=== PATIENT | female | born 1975 | race African-American/Black ===

== ENCOUNTER 2020-08-31 22:45 | Emergency (ER) | payer BC ==
[~2020-08-31] VITALS: Ht 172.7 cm; Wt 126.1 kg
[2020-08-31 22:57] VITALS: BP 145/77
[2020-08-31 23:02] LABS: URINE BILIRUBIN NEGATIVE (Negative); URINE BLOOD NEGATIVE (Negative); URINE CLARITY CLEAR; URINE COLOR YELLOW; URINE GLUCOSE-RANDOM* NEGATIVE (Negative); URINE KETONES NEGATIVE (Negative); URINE LEUKOCYTES-REFLEX NEGATIVE (Negative); URINE NITRITE-REFLEX NEGATIVE (Negative); URINE PROTEIN (DIPSTICK) NEGATIVE (Negative); URINE SPECIFIC GRAVITY >= 1.030 (1.005-1.035); URINE UROBILINOGEN 0.2 E.U./dl (0.2-1.0)
[2020-08-31] MEDS ORDERED: FLAGYL500 M1 PO ×2 (23:12→23:35)
[2020-08-31] MEDS ORDERED: DIFLUCAN150 MG PO (23:12)
[2020-08-31] MEDS ORDERED: METROGEL-VAGINA70 GM VAG ×2 (23:29→23:35)
[2020-08-31] MEDS ORDERED: METRONIDAZOLE500 M4 PO (23:31)
== END 2020-08-31 23:57 | disposition home or self-care (01) ==
LOC: ER 22:45
PROVIDERS: Emergency Medicine
DX: N76.0 Acute vaginitis (principal); Z90.89 Acquired absence of other organs